=== PATIENT | male | born 2005 | race Caucasian/White ===

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

== ENCOUNTER 2025-02-22 21:22 | Emergency (ER) | payer OTHER | END 2025-02-22 23:34 | disposition home or self-care (01) | LOC: ED 21:22 | DX: R10.32 Left lower quadrant pain (principal) ==

== ENCOUNTER 2025-05-31 09:41 | Emergency (ER) | payer OTHER ==
[~2025-05-31] VITALS: Ht 180.3 cm; Wt 66.1 kg
--- OUTSIDE RECORDS SUMMARY | 2025-05-31 09:48 | XMS ---
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 E.D. VISIT COUNT (12 MO.) 5 [facility] TOTAL 5 NOTE: Visits indicate total known visits. ED/UCC VISIT TRACKING (12 MO.) 05/31/2025 09:42 [facility] TYPE: Emergency COMPLAINT: - VOMITING 02/22/2025 21:22 [facility] TYPE: Emergency COMPLAINT: - ABDOMINAL PAIN DIAGNOSES: - Left lower quadrant pain 01/08/2025 20:43 [facility] TYPE: Emergency COMPLAINT: - CHEST PAIN 09/14/2024 12:54 [facility] TYPE: Emergency COMPLAINT: - NOSE BLEED DIAGNOSES: - Epistaxis 07/08/2024 12:07 [facility] TYPE: Emergency COMPLAINT: - POST OP GALLBLADDER INCISION ISSUES DIAGNOSES: - Encounter for change or removal of surgical wound dressing - Other fpc (current) drug therapy INPATIENT VISIT TRACKING (12 MO.) No inpatient visits to display in this time frame [id number]
[2025-05-31 10:01] LABS: BASOPHILS 1.2 % (0.2-1.2); EOSINOPHILS 3.4 % (0.8-7.0); LYMPHOCYTES 22.0 % (21.8-53.1); MCH 28.7 PG (25.7-32.2); MCHC 33.8 g/dL (32.3-36.5); MCV 84.9 fL (79.0-92.2); MONOCYTES 8.1 % (5.3-12.2); NEUTROPHILS 65.1 % (34.0-67.9); RBC 5.75 M/uL (4.63-6.08)
[2025-05-31] MEDS ORDERED: SODIUM CHLORIDE 0.9% 1,000 ML IV PRN (10:15)
[2025-05-31 10:22] LABS: ALT (SGPT) 20.0 U/L (14-59); AST (SGOT) 18.0 U/L (15-37); GLOMERULAR FILTRATION RATE,EST 134.0 mL/min (>60); PROTEIN, TOTAL 7.3 g/dL (6.4-8.2); UREA NITROGEN 17.0 mg/dL (7-18)
[2025-05-31] MEDS ORDERED: OMEPRAZOLE20 MG PO (12:02)
[2025-05-31 12:18] VITALS: BP 129/74
== END 2025-05-31 12:21 | disposition home or self-care (01) ==
LOC: ED 09:41
PROVIDERS: Emergency Medicine
DX: E80.6 Other disorders of bilirubin metabolism (principal)
CPT/HCPCS: 36415; 76705; 80053; 83690; 85025; 96374; 99284-25; J2405; J7030